=== PATIENT | female | born 1985 | race Caucasian/White ===

== ENCOUNTER 2019-03-29 13:30 | Emergency (ER) | payer OTHER, SELFPAY ==
--- NOTE | ~2019-03-29 | CT_ITS ---
EXAMINATION: CT abdomen pelvis w con DATE: 03/29/2019 14:52 INDICATION: Right lower quadrant abdominal pain. TECHNIQUE: Computed tomography (CT) of the abdomen and pelvis was performed with 100 mL Omnipaque 350 intravenous contrast. Automated exposure control and iterative reconstruction technique were employe d. The dose-length product was 177.60 mGy-cm. COMPARISON: CT abdomen and pelvis 01/18/2013 FINDINGS: The visualized portions of the lung bases demonstrate minimal atelectasis on the left. No p leural effusion. The heart size is normal. No pericardial effusion. The liver, gallbladder, spleen, p ancreas, adrenal glands, and left kidney are normal. Right kidney demonstrates a striated nephrogram, consistent with pyelonephritis. There are no dilated loops of bowel. The appendix is normal. There a re no pathologically enlarged lymph nodes. There is trace pelvic ascites. The bones are unremarkable. IMPRESSION: 1. Right-sided pyelonephritis. Reviewed, dictated and finalized at location A. [facility]
[2019-03-29 13:42] VITALS: BP 118/71; PULSE 113; RESP 17; TEMP 37.4; O2SAT 100
--- NOTE | 2019-03-29 14:06 | ED.ABDPAIN ---
HPI - Abdominal Pain General Chief Complaint: Abdominal Pain Stated Complaint: Weak Time Seen by Provider: 03/29/19 14:03 Source: patient and RN notes reviewed Mode of arrival: ambulatory Limitations: no limitations History of Present Illness HPI narrative: Pt is a 33 y/o female who presents to the ED with c/o right flank pain which began 4 years ago but has worsened since 2 days ago. Pt states her symptoms have been progressively since 2 days ago. Pt reports the pain radiates to her medial back and right-sided ABD. She states she started to see white spots when the pain began to worsen. She states she has seen her PCP for her symptoms without a formal diagnosis. She reports chills, a subjective fever, hot flashes, nausea, vomiting, hematuria, and vaginal discharge, but denies dysuria. She denies any STD history. MD elicited complaint: flank pain (right-sided) Pertinent past history: none Onset (ago): year(s) (4 years ago) Pain Consistency: constant Location: R flank Radiation: other (right-sided ABD and medial back) Migration to: no migration Associated symptoms: nausea, vomiting, fever (subjective), chills, hematuria and other (hot flashes; vaginal discharge) Related Data Allergies Allergy/AdvReac Type Severity Reaction Status Date / Time codeine Allergy Mild ITCHING Verified 09/01/17 10:14 cephalexin Allergy Unknown Verified 08/30/17 10:52 latex Allergy Unknown BLOTCHY Verified 09/01/17 10:14 Review of Systems Review of Systems: Narrative: CONSTITUTIONAL: Reports chills, a subjective fever, and hot flashes. GASTROINTESTINAL: Reports nausea and vomiting. GENITOURINARY: Reports hematuria and urinary frequency. MUSCULOSKELETAL: Reports right flank pain which radiates to the medial back and right-sided ABD. All systems reviewed & are unremarkable except as noted in HPI and below PMFSH Past Medical History Medical History (Updated 03/29/19 @ 15:29 by Kira Hardin MD) Anemia Bronchitis delivery delivered GERD (gastroesophageal reflux disease) Pneumonia Ulcer UTI (urinary tract infection) Surgical History Surgical History (Updated 03/29/19 @ 14:17 by Tiffany Rogers) H/O dilation and curettage H/O: hysterectomy Family History Family History (Updated 08/30/17 @ 10:56 by DOCTOR UNKNOWN) Other Family history of allergic disorder Hypertension Social History Social History Smoking status: Current every day smoker Alcohol intake: current Gender identity (if verbalized by the patient): Female Exam Narrative: Exam Narrative: GENERAL: Well-appearing and and in no acute distress. Thin in appearance. HEAD: Normocephalic, atraumatic. EYES: PERRLA and EOMI. ENT: Nares clear, no rhinorrhea or epistaxis. Mucous membranes moist. NECK: Supple. CHEST: Clear to auscultation. No respiratory distress. HEART: Tachycardic rate and regular rhythm. No murmur heard. Normal peripheral pulses. ABDOMEN: Diffusely tender throughout the ABD. EXTREMITIES: Normal range of motion. No edema. MUSCULOSKELETAL: Tenderness to right flank. SKIN: Warm, dry, no rash. NEURO: No focal deficits. Alert and oriented Course Vital Signs Vital signs: Vital Signs Temperature 37.4 C 03/29/19 13:42 Pulse Rate 113 H 03/29/19 13:42 Respiratory Rate 17 03/29/19 13:42 Blood Pressure 118/71 03/29/19 13:42 Pulse Oximetry 100 03/29/19 13:42 Temperature 37.4 C 03/29/19 13:42 Pulse Rate 113 H 03/29/19 13:42 Respiratory Rate 17 03/29/19 13:42 Blood Pressure 118/71 03/29/19 13:42 Pulse Oximetry 100 03/29/19 13:42 MDM - Abdominal Pain MDM Narrative Medical decision making narrative: Patient presenting for evaluation of right flank pain. At the time of initial assessment, patient is mildly tachycardic, afebrile, she has right lower quadrant tenderness, right flank tenderness, patient is also endorsing some urinary symptoms. Laboratory results are consistent with pyelonephritis. Patient has a leuko
[2019-03-29 14:16] LABS: Basophils Percent Auto 0.2 % (0.2-1.2); Eosinophils Percent Auto 0.1 % (0-4.4); Hematocrit 37.8 % (37.0-47.0); Hemoglobin 12.7 g/dL (12.0-15.0); Immature Granulocyte Absolute 0.12 K/mm3 (0.00-0.031); Immature Granulocyte Percent A 0.8 % (0-0.5); Immature Platelet Fraction Pct 7.2 % (0.9-11.2); Lymphocytes Percent Auto 3.2 % (18.3-44.2); Mean Corpuscular HGB Conc 33.6 g/dl (32-36); Mean Corpuscular Hemoglobin 31.8 pg (26-34); Mean Corpuscular Volume 94.5 fl (80-100); Mean Platelet Volume 11.7 fl (7.4-10.4); Monocytes Absolute Auto 0.4 K/mm3 (0.1-0.6); Monocytes Percent Auto 2.8 % (2.6-8.5); Neutrophils Absolute Auto 14.8 K/mm3 (1.3-6.7); Neutrophils Percent Auto 92.9 % (45.5-73.1); Platelet Count Result 121 k/mm3 (150-375); Red Cell Distribution Width 12.4 % (11.5-14.5); White Blood Count 15.9 K/mm3 (4.5-10.0)
[2019-03-29 14:19] LABS: Add Urine Microscopic? YES; Appearance Urine Cloudy (Clear); Bacteria Urine Trace /hpf; Bilirubin Urine Negative (Negative); Blood Urine 2+ (Negative); Color Urine Amber (Yellow); Glucose Urine UA Negative (Negative); Ketones Urine Negative (Negative); Leukocyte Esterase Ur 2+ LEU/UL (Negative); Mucus Urine Heavy /lpf; Nitrate Urine Positive (Negative); Protein Urine 3+ mg/dL (Negative); RBC Urine 21-50 /hpf (0-2); Specific Grav Ur 1.026 (1.001-1.035); Squamous Epithelial Cell Urine Many /hpf (Few); WBC Clumps Urine Present /HPF; WBC Urine >75 /hpf
[2019-03-29 14:27] LABS: Blood Urea Nitrogen 13 mg/dL (7-17); Calcium 8.8 mg/dL (8.4-10.2); Carbon Dioxide 22 mmol/L (22-30); Chloride 100 mmol/L (98-107); Estimated Glomerular Filt Rate > 60; Glucose 99 mg/dL (65-105); Sodium 133 mmol/L (137-145)
[2019-03-29] MEDS: SODIUM CHLORIDE 0.9% IV 1,000 ML 999 ML IV CONT (15:10)
[2019-03-29] MEDS: METOCLOPRAMIDE HCL INJ 10 MG/2 ML VIAL IV PUSH (15:10)
[2019-03-29] MEDS: POTASSIUM CHLORIDE 20 MEQ PACKET (FOR LIQUID) 40 MEQ PO (15:36)
[2019-03-29] MEDS: CIPROFLOXACIN 400 MG/D5W 200ML 200 ML 200 MG IVPB (15:36)
[2019-03-29 16:21] VITALS: BP 104/72; PULSE 108; O2SAT 99
== END 2019-03-29 16:23 | disposition home or self-care (01) ==
PROVIDERS: Emergency Provider Emergency Medicine; PCP Family Medicine
DX: N12 Tubulo-interstitial nephritis, not specified as acute or chronic (principal); F17.200 Nicotine dependence, unspecified, uncomplicated; Z86.2 Personal history of diseases of the blood and blood-forming organs and certain disorders involving the immune mechanism; K21.9 Gastro-esophageal reflux disease without esophagitis
CPT/HCPCS: 36415; 74177; 80048; 81001; 85025; 87077; 87086; 87088; 87186; 96365; 96367; 96375; 99284; A9270; J0131; J0744; J2765; J7030; Q9967

== ENCOUNTER 2019-10-29 10:08 | Emergency (ER) | payer OTHER, MEDICAID, SELFPAY ==
[2019-10-29 10:22] VITALS: BP 116/81; PULSE 85; RESP 20; TEMP 36.7; O2SAT 100
--- NOTE | 2019-10-29 10:22 | ED.GENADULT ---
HPI - General Adult General Chief complaint: Upper Respiratory Infection Stated complaint: valverde/dizzy/vomiting/sinus pressure/congestion Time Seen by Provider: 10/29/19 10:22 Source: patient and RN notes reviewed Mode of arrival: ambulatory Limitations: no limitations History of Present Illness HPI narrative: 33-year-old female presents with complaints of cough, upper respiratory infection, some facial congestion, facial pressure, and intermittent headache (not the worst of her life) for the past 2 days. Mucinex D, Tylenol (last this morning at 06:00), Excedrin (last 10/28/19 @ 21:00), and Ibuprofen (last 10/28/19 @ 14:00) without relief. No facial swelling. Dry cough and intermittent chest congestion. Nasal congestion and rhinorrhea. Sore throat. Pain is bilateral. Hurts to swallow. No high fevers, drooling, neck or throat swelling. No voice change. One episode of vomiting (last on 10/27/19) with nausea without blood or abdominal pain. Tolerating liquids well. Denies chills, dyspnea, difficulty swallowing, jaw pain, dental pain, foreign body sensation, and rash. No chest pain or shortness of breath. Denies vision change, confusion, or seizure activity. LMP hysterectomy. The patient reports she have not been diagnosed with COVID-19. The patient reports she is not waiting for the results of a COVID-19 lab test. The patient reports she do not have fever, chills, weakness, or fatigue. Denies chest pain. The patient reports she do not have any abdominal pain or diarrhea. Denies recent traveling. Denies concerns for COVID-19 or exposures been home with limited outdoor exposure except for essential household needs, work, and return home. At this time, patient is not suspected of having COVID-19. Some parts of this dictation were generated by voice recognition software and may contain typographical and/or grammatical inaccuracies. Related Data Home Medications Medication Instructions Recorded Confirmed alprazolam 1 mg PO QID PRN 04/08/19 10/29/19 fluoxetine [Prozac] 20 mg PO DAILY 04/08/19 10/29/19 Allergies Allergy/AdvReac Type Severity Reaction Status Date / Time codeine Allergy Mild ITCHING Verified 09/01/17 10:14 cephalexin Allergy Unknown Verified 08/30/17 10:52 latex Allergy Unknown BLOTCHY Verified 09/01/17 10:14 Review of Systems Review of Systems: Narrative: CONSTITUTIONAL: Denies fever, chills, sweats. EYES: Denies visual changes, redness, discharge. ENT: Complains of rhinorrhea, congestion, facial congestion and pressure, sore throat. Denies otalgia. CARDIOVASCULAR: Denies chest pain, palpitations, edema. RESPIRATORY: Denies dyspnea, wheezing. Complains of dry cough, chest congestion. GASTROINTESTINAL: Denies abdominal pain, diarrhea. Complains of nausea, vomiting, GENITOURINARY: Denies dysuria, hematuria, abnormal discharge SKIN: Denies rash or itching. MUSCULOSKELETAL: Denies acute back pain, joint pain, or myalgia. NEUROLOGIC: Denies numbness, or focal weakness. Complains of intermittent VALVERDE. PSYCHIATRIC: Denies anxiety or depression. All other systems reviewed & are unremarkable except as noted in HPI and below. [facility] Past Medical History Medical History (Updated 10/29/19 @ 10:46 by HIPOLITO Rubio) Anemia Anxiety Bronchitis delivery delivered Depression Episode of shaking GERD (gastroesophageal reflux disease) Pneumonia Tubal Ulcer Ulnar nerve entrapment Umbilical hernia UTI (urinary tract infection) Surgical History Surgical History (Updated 10/29/19 @ 10:46 by HIPOLITO Rubio) H/O dilation and curettage H/O: hysterectomy History of carpal tunnel release History of hernia surgery Umbilical hernia History of tubal ligation Family History Family History Other Family history of allergic disorder Hypertension Social History Social History (Updated 10/29/19 @ 10:47 by Brielle Adrian
[2019-10-29] MEDS: ONDANSETRON HCL ODT 4 MG TABLET PO (10:40)
[2019-10-29] MEDS: KETOROLAC (*BKC) 60 MG/2 ML VIAL IM (10:41)
== END 2019-10-29 11:10 | disposition home or self-care (01) ==
PROVIDERS: Emergency Provider Nurse Practitioner Family; PCP Family Medicine
DX: J01.00 Acute maxillary sinusitis, unspecified (principal); R51 Headache; Z20.828 Contact with and (suspected) exposure to other viral communicable diseases; F17.210 Nicotine dependence, cigarettes, uncomplicated; K21.9 Gastro-esophageal reflux disease without esophagitis; F41.9 Anxiety disorder, unspecified; F32.9 Major depressive disorder, single episode, unspecified
CPT/HCPCS: 96372; 99213; A9270; G0463; J1885

== ENCOUNTER → 2020-06-01 09:24 | Outpatient (CLI) | payer OTHER, SELFPAY ==
[2020-06-01 21:05] LABS: SARS-CoV-2 RNA PCR Positive
== END ==
PROVIDERS: PCP Family Medicine; Visit Provider Family Medicine
DX: U07.1 COVID-19 (principal)
CPT/HCPCS: C9803; U0003; U0005

== ENCOUNTER 2020-07-27 11:25 | Emergency (ER) | payer OTHER, SELFPAY ==
[2020-07-27 11:40] VITALS: BP 99/76; PULSE 85; RESP 17; TEMP 37.2
--- NOTE | 2020-07-27 12:25 | ED.URI ---
HPI - URI/Sore Throat General Chief Complaint: Upper Respiratory Infection Stated Complaint: upper respiratory infection Time Seen by Provider: 07/27/20 11:50 Source: patient and RN notes reviewed Mode of arrival: ambulatory Limitations: no limitations History of Present Illness HPI Narrative: Patient presents today complaining of 2-day history of cough, sore throat, headache, sweats and chills, body aches, shortness of breath, diarrhea, vomiting. States the diarrhea is watery. She has not been able to keep down food, but has been able to keep down fluids. She currently rates her body aches 10 and has been using Mucinex D, NyQuil, and ibuprofen with mild short-term relief. She was diagnosed with COVID-19 2 months ago. States to children in her home are currently sick with similar symptoms. She is requesting a work note today. Denies known fever. Patient smokes cigarettes, 3 to 4-day. Related Data Home Medications Medication Instructions Recorded Confirmed alprazolam 1 mg PO QID PRN 04/08/19 07/27/20 fluoxetine [Prozac] 20 mg PO DAILY 04/08/19 07/27/20 Allergies Allergy/AdvReac Type Severity Reaction Status Date / Time amoxicillin Allergy Mild Hives Verified 07/27/20 12:42 cephalexin Allergy Mild Hives Verified 07/27/20 12:41 codeine Allergy Mild ITCHING Verified 07/27/20 12:41 latex Allergy Mild BLOTCHY Verified 07/27/20 12:41 Review of Systems Review of Systems: Narrative: CONSTITUTIONAL: Denies fever. + Body aches, sweats and chills EYES: Denies visual changes, redness, or discharge. ENT: Denies rhinorrhea, congestion, or otalgia.+ Sore throat CARDIOVASCULAR: Denies chest pain, palpitations, or edema. RESPIRATORY: + Cough, shortness of breath GASTROINTESTINAL: Denies abdominal pain. + Nausea, vomiting, diarrhea GENITOURINARY: Denies dysuria or hematuria. SKIN: Denies rash, itching, or wounds. MUSCULOSKELETAL: Denies back pain, joint pain, or myalgia. NEUROLOGIC: Denies numbness, tingling, or weakness. + Headache, dizziness PSYCH: Denies depression or anxiety. [facility] Past Medical History Medical History Anemia Anxiety Bronchitis delivery delivered Depression Episode of shaking GERD (gastroesophageal reflux disease) Pneumonia Tubal Ulcer Ulnar nerve entrapment Umbilical hernia UTI (urinary tract infection) Surgical History Surgical History H/O dilation and curettage H/O: hysterectomy History of carpal tunnel release History of hernia surgery Umbilical hernia History of tubal ligation Family History Family History Other Family history of allergic disorder Hypertension Social History Social History Smoking packs per day: 0.2 Smoking cigarettes per day: 4.0 Years smoked: 5 Smoking pack-years: 1.00 Smoking status: Current every day smoker Tobacco type: cigarettes Second hand tobacco smoke exposure: No Alcohol intake: never Substance use: never Gender identity (if verbalized by the patient): Female Comments At time of signature, I have reviewed and agree with nursing past medical, surgical, social and family history unless otherwise noted. Please see nursing chart for further information. There is no relevant family history pertinent to the presenting complaint Exam Narrative: Exam Narrative: GENERAL: Mildly ill-appearing, well-nourished, and in no acute distress. HEAD: Normocephalic, atraumatic. EYES: EOMI. No redness or drainage. Conjunctivae normal. ENT: Mucous membranes pink and moist. Nares clear. No rhinorrhea. TMs normal bilaterally. Throat mildly erythematous without edema or exudate. Uvula midline. NECK: Normal AROM. Supple. No lymphadenopathy. CHEST: No respiratory distress. Clear to ausculta
== END 2020-07-27 12:35 | disposition home or self-care (01) ==
PROVIDERS: Emergency Provider Nurse Practitioner; PCP Family Medicine
DX: B34.9 Viral infection, unspecified (principal); J40 Bronchitis, not specified as acute or chronic; F17.210 Nicotine dependence, cigarettes, uncomplicated; F41.9 Anxiety disorder, unspecified; F32.9 Major depressive disorder, single episode, unspecified; K21.9 Gastro-esophageal reflux disease without esophagitis
CPT/HCPCS: 87081; 87804; 87880; 99213; G0463

== ENCOUNTER 2021-08-15 15:15 | Emergency (ER) | payer OTHER, SELFPAY ==
[2021-08-15 15:18] VITALS: BP 141/90; PULSE 87; RESP 12; TEMP 36.3; O2SAT 99
== END 2021-08-15 15:43 | disposition left against medical advice (07) ==
PROVIDERS: Emergency Provider Nurse Practitioner; PCP Family Medicine
DX: Z53.21 Procedure and treatment not carried out due to patient leaving prior to being seen by health care provider (principal)
CPT/HCPCS: 99199

== ENCOUNTER 2021-08-15 15:53 | Emergency (ER) | payer OTHER, SELFPAY ==
[2021-08-15 15:55] VITALS: BP 139/90; PULSE 90; RESP 18; TEMP 36.8; O2SAT 100
[2021-08-15 16:21] LABS: Basophils Percent Auto 0.3 % (0.2-1.2); Eosinophils Percent Auto 0.6 % (0-4.4); Hematocrit 31.7 % (37.0-47.0); Hemoglobin 10.1 g/dL (12.0-15.0); Immature Granulocyte Absolute 0.02 K/mm3 (0.00-0.031); Immature Granulocyte Percent A 0.3 % (0-0.5); Lymphocytes Absolute Auto 1.34 K/mm3 (0.9-3.2); Lymphocytes Percent Auto 19.4 % (18.3-44.2); Mean Corpuscular HGB Conc 31.9 g/dl (32-36); Mean Corpuscular Hemoglobin 31.7 pg (26-34); Mean Corpuscular Volume 99.4 fl (80-100); Mean Platelet Volume 11.3 fl (7.4-10.4); Monocytes Absolute Auto 0.3 K/mm3 (0.1-0.6); Monocytes Percent Auto 4.3 % (2.6-8.5); Neutrophils Absolute Auto 5.2 K/mm3 (1.3-6.7); Neutrophils Percent Auto 75.1 % (45.5-73.1); Platelet Count Result 142 k/mm3 (150-375); Red Blood Count 3.19 M/mm3 (4.2-5.4); Red Cell Distribution Width 14.2 % (11.5-14.5); White Blood Count 6.9 K/mm3 (4.5-10.0)
[2021-08-15 16:22] LABS: Appearance Urine Clear (Clear); Bilirubin Urine Negative (Negative); Blood Urine Trace-lysed (Negative); Color Urine Yellow (Yellow); Glucose Urine UA Negative (Negative); Ketones Urine Negative (Negative); Leukocyte Esterase Ur Negative LEU/UL (Negative); Nitrate Urine Negative (Negative); Protein Urine 1+ mg/dL (Negative); Urobilinogen Urine 0.2 mg/dL (<2.0); pH Urine 7.5 (5.0-9.0)
--- NOTE | 2021-08-15 16:23 | ED.EXTPRO ---
HPI - Extremity Problem General Chief complaint: Extremity Problem,Nontraumatic Stated complaint: bilateral leg edema Time Seen by Provider: 08/15/21 16:00 Related Data Home Medications Medication Instructions Recorded Confirmed alprazolam 1 mg tablet 1 mg PO QID PRN Anxiety 04/08/19 07/27/20 fluoxetine 20 mg capsule (Prozac) 20 mg PO DAILY 04/08/19 07/27/20 Allergies Allergy/AdvReac Type Severity Reaction Status Date / Time amoxicillin Allergy Mild Hives Verified 08/15/21 16:14 cephalexin Allergy Mild Hives Verified 08/15/21 16:14 codeine Allergy Mild ITCHING Verified 08/15/21 16:14 latex Allergy Mild BLOTCHY Verified 08/15/21 16:14 [facility] Past Medical History Medical History Anemia Anxiety Bronchitis delivery delivered Depression Episode of shaking GERD (gastroesophageal reflux disease) Pneumonia Tubal Ulcer Ulnar nerve entrapment Umbilical hernia UTI (urinary tract infection) Surgical History Surgical History H/O dilation and curettage H/O: hysterectomy History of carpal tunnel release History of hernia surgery Umbilical hernia History of tubal ligation Family History Family History Other Family history of allergic disorder Hypertension Social History Social History Smoking packs per day: 0.2 Smoking cigarettes per day: 4.0 Years smoked: 5 Smoking pack-years: 1.00 Smoking status: Current every day smoker Tobacco type: cigarettes Second hand tobacco smoke exposure: No Alcohol intake: never Substance use: never Gender identity (if verbalized by the patient): Female Sexual Orientation (if Verbalized by the Patient): Straight or Heterosexual Course Vital Signs Vital signs: Vital Signs Temperature 98.3 F 08/15/21 15:55 Pulse Rate 90 08/15/21 15:55 Respiratory Rate 18 08/15/21 15:55 Blood Pressure 139/90 08/15/21 15:55 Pulse Oximetry 100 08/15/21 15:55 Oxygen Delivery Room Air 08/15/21 15:55 Temperature 98.3 F 08/15/21 15:55 Pulse Rate 77 08/15/21 16:42 Respiratory Rate 17 08/15/21 16:42 Blood Pressure 138/96 H 08/15/21 16:42 Pulse Oximetry 99 08/15/21 16:42 Oxygen Delivery Room Air 08/15/21 15:55 MDM - Extremity (Nontraumatic) Lab Data Result diagrams: 08/15/21 16:15 08/15/21 16:15 Labs: Lab Results 08/15/21 08/15/21 08/15/21 Range/Units 16:10 16:15 16:15 WBC 6.9 (4.5-10.0) K/mm3 RBC 3.19 L (4.2-5.4) M/mm3 Hgb 10.1 L (12.0-15.0) g/dL Hct 31.7 L (37.0-47.0) % MCV 99.4 (80-100) fl MCH 31.7 (26-34) pg MCHC 31.9 L (32-36) g/dl RDW 14.2 (11.5-14.5) % Plt Count 142 L (150-375) k/mm3 MPV 11.3 H (7.4-10.4) fl Immature Gran % (Auto) 0.3 (0-0.5) % Neut % (Auto) 75.1 H (45.5-73.1) % Lymph % (Auto) 19.4 (18.3-44.2) % [place] % (Auto) 4.3 (2.6-8.5) % Eos % (Auto) 0.6 (0-4.4) % Baso % (Auto) 0.3 (0.2-1.2) % Lymph # (Auto) 1.34 (0.9-3.2) K/mm3 [place] # (Auto) 0.3 (0.1-0.6) K/mm3 Eos # (Auto) 0.0 (0-0.3) K/mm3 Baso # (Auto) 0.0 (0.0-0.1) K/mm3 Abs Immat Gran (auto) 0.02 (0.00-0.031) K/mm3 Absolute Neuts (auto) 5.2 (1.3-6.7) K/mm3 Absolute Nucleated RBC 0.0 (0.0-0.012) K/mm3 Nucleated RBC % 0.0 (0.0-0.2) % Sodium 141 (137-145) mmol/L Potassium 3.3 L (3.4-5.0) mmol/L Chloride 107 (98-107) mmol/L Carbon Dioxide 27 (22-30) mmol/L Anion Gap 7 L (8-16) mmol/L BUN 18 H (7-17) mg/dL Creatinine 0.70 (0.7-1.0) mg/dL Estim Creat Clear Calc 73 ml/min Estimated GFR > 60 (59 - ) Glucose 108 (65-110) mg/dL Calcium 8.2 L (8.4-10.2) mg/dL Total Bilirubin 0.3 (0.2-1.3) mg/dL AST 35 (14-36) U/L ALT 27 (6-35) U/L
[2021-08-15 16:31] LABS: Alanine Aminotransferase 27 U/L (6-35); Albumin Level 4.2 g/dL (3.5-5.1); Alkaline Phosphatase 61 U/L (38-126); Anion Gap 7 mmol/L (8-16); Aspartate Amino Transferase 35 U/L (14-36); Bilirubin,Total 0.3 mg/dL (0.2-1.3); Blood Urea Nitrogen 18 mg/dL (7-17); Calcium 8.2 mg/dL (8.4-10.2); Carbon Dioxide 27 mmol/L (22-30); Chloride 107 mmol/L (98-107); Estimated CRCL calculation 73 ml/min; Estimated Glomerular Filt Rate > 60; Glucose 108 mg/dL (65-110); Potassium 3.3 mmol/L (3.4-5.0); Sodium 141 mmol/L (137-145)
[2021-08-15 16:39] LABS: Mucus Urine Rare /lpf; Squamous Epithelial Cell Urine Few /hpf (Few); WBC Urine 0-3 /hpf
[2021-08-15 16:42] VITALS: BP 138/96; PULSE 77; RESP 17; O2SAT 99
[2021-08-15 16:50] LABS: Add Urine Microscopic? YES
[2021-08-15] MEDS: FUROSEMIDE 20 MG TABLET PO (17:15)
[2021-08-15] MEDS: POTASSIUM CHLORIDE 20 MEQ PACKET (FOR LIQUID) 40 MEQ PO (17:18)
== END 2021-08-15 17:20 | disposition home or self-care (01) ==
PROVIDERS: Emergency Provider Emergency Medicine; PCP Family Medicine
DX: R60.0 Localized edema (principal); F32.9 Major depressive disorder, single episode, unspecified; F41.9 Anxiety disorder, unspecified; F17.210 Nicotine dependence, cigarettes, uncomplicated
CPT/HCPCS: 36415; 80053; 81001; 85025; 99283; A9270

== ENCOUNTER 2023-02-16 02:00 | Day surgery (SDC) | payer MEDICAID, SELFPAY ==
[2023-01-30 15:03] VITALS: BMI 21.9
--- NOTE | 2023-02-14 12:35 | SUR.PREOP ---
Patient called regarding upcoming procedure. Reviewed preop instructions, appointment times, and procedure prep.
[2023-02-16 08:47] VITALS: BP 117/77; PULSE 84; RESP 18; TEMP 36.4; O2SAT 100; BMI 22.8
[2023-02-16] MEDS: LACTATED RINGERS 1,000 ML 150 ML IV CONT (09:07)
--- NOTE | 2023-02-16 09:43 | PM.HPGS ---
History of Present Illness History of Present Illness Consent: Risks, benefits, and alternatives have been discussed and questions answered. Patient agrees to proceed with procedure. Chief complaint: abdom.pain,Abdominal distension (gaseous), Narrative: Amaya Ross is a 37 year old female [facility] Past Medical History Medical History (Updated 01/11/23 @ 14:43 by Brittany Martinez APN-C) Abdominal pain Allergy to alpha-gal Anemia Anxiety Bloating BMI 21.0-21.9, adult Bronchitis delivery delivered Depression Early satiety Encounter for other specified surgical aftercare Episode of shaking GERD (gastroesophageal reflux disease) Incisional hernia, without obstruction or gangrene Loose stools Pneumonia Tobacco abuse Tubal Ulcer Ulnar nerve entrapment Umbilical hernia UTI (urinary tract infection) Surgical History Surgical History H/O dilation and curettage H/O: hysterectomy History of carpal tunnel release History of hernia surgery Umbilical hernia History of tubal ligation Family History Family History (Updated 01/11/23 @ 12:58 by JOHN Romero) Father No problems noted. Mother Diverticulitis Obesity Sibling No problems noted. Other Family history of allergic disorder Hypertension Social History Social History (Updated 01/11/23 @ 13:00 by JOHN Romero) Smoking packs per day: 0.2 Smoking cigarettes per day: 4.0 Years smoked: 13 Smoking pack-years: 2.60 Smoking status: Current every day smoker Tobacco type: cigarettes Second hand tobacco smoke exposure: No Alcohol intake: never Substance use: current Substance use type: marijuana Lack of Transportation: No Lack of Food: Never True Current Housing: I Have Housing Concerned About Future Housing: No Difficulty Paying Gas/Electric Bills: No Difficulty Paying for Meds: No Currently Unemployed: No Education: Associate Degree Difficulty w/ Childcare or Family Care: No Living arrangements: with family Occupation/Education: occupation 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 Gender identity (if verbalized by the patient): Female Sexual Orientation (if Verbalized by the Patient): Straight or Heterosexual Spiritual care concerns: No Meds Home Medications and Allergies Home Medications Medication Instructions Recorded Confirmed Type alprazolam 1 mg tablet 1 mg PO QID PRN Anxiety 04/08/19 01/30/23 History fluoxetine 20 mg capsule (Prozac) 20 mg PO DAILY 04/08/19 01/30/23 History albuterol sulfate 90 mcg/actuation 2 puff inhalation Q4-6H PRN 07/27/20 01/30/23 Rx aerosol inhaler (ProAir HFA) Shortness Of Breath Or Wheezing #18 grams dexlansoprazole 30 mg 30 mg PO DAILY 1 month #30 caps 01/11/23 01/30/23 Rx capsule,biphase delayed release (Dexilant) dicyclomine 20 mg tablet 20 mg PO QID #90 tabs 01/11/23 01/30/23 Rx Allergies Allergy/AdvReac Type Severity Reaction Status Date / Time amoxicillin Allergy Mild Hives Verified 01/11/23 12:54 codeine Allergy Mild ITCHING Verified 01/11/23 12:54 latex Allergy Mild BLOTCHY Verified 01/11/23 12:54 morphine Allergy Jittery Verified 01/30/23 15:01 cephalexin AdvReac Intermediate Hives Verified 01/11/23 12:54 Vital Signs Vital Signs - 24 hr 02/16/23 08:47 Temperature 97.6 F Pulse Rate 84 Respiratory Rate 18 Blood Pressure 117/77 Pulse Oximetry 100 Oxygen Delivery Room Air Assessment and Plan Assessment and plan (1) Bloating: Code(s): R14.0 - Abdominal distension (gaseous) Status: Acute (2) Abdominal pain: Code(s): R10.9 - Unspecified abdominal pain Status: Acute Assessment and Plan: Patient with multiple vague abdominal complaints epigastric discomfort, bloating. Loose stools. Colonoscopy an EGD request will be performed to exclude organic dis
--- NOTE | 2023-02-16 10:35 | SUR.OPER ---
egd ended at 1029 and colonoscopy started at 1034
--- NOTE | 2023-02-16 10:38 | WPDANESEPPF ---
Anes - Initial Pre Proc Eval Procedure: Operation Date: 02/16/23 10:15 Proposed Procedures p Esophagogastroduodenoscopy & Colonoscopy - Edgar Potts MD Date/Time: 02/16/23 10:38 Surgeon: Edgar Potts MD Pre Op Diagnosis: abdom.pain,Abdominal distension (gaseous), Patient Data Age: 37 Gender: F Height: 1.55 m Weight: 54.8 kg Last Vital Signs Temp 97.6 F 02/16/23 08:47 Pulse 84 02/16/23 08:47 Resp 18 02/16/23 08:47 BP 117/77 02/16/23 08:47 Pulse Ox 100 02/16/23 08:47 O2 Del Method Room Air 02/16/23 08:47 Allergies Allergy/AdvReac Type Severity Reaction Status Date / Time amoxicillin Allergy Mild Hives Verified 01/11/23 12:54 codeine Allergy Mild ITCHING Verified 01/11/23 12:54 latex Allergy Mild BLOTCHY Verified 01/11/23 12:54 morphine Allergy Jittery Verified 01/30/23 15:01 cephalexin AdvReac Intermediate Hives Verified 01/11/23 12:54 Home Medications Medication Instructions Recorded Confirmed Type alprazolam 1 mg tablet 1 mg PO QID PRN Anxiety 04/08/19 01/30/23 History fluoxetine 20 mg capsule (Prozac) 20 mg PO DAILY 04/08/19 01/30/23 History albuterol sulfate 90 mcg/actuation 2 puff inhalation Q4-6H PRN 07/27/20 01/30/23 Rx aerosol inhaler (ProAir HFA) Shortness Of Breath Or Wheezing #18 grams dexlansoprazole 30 mg 30 mg PO DAILY 1 month #30 caps 01/11/23 01/30/23 Rx capsule,biphase delayed release (Dexilant) dicyclomine 20 mg tablet 20 mg PO QID #90 tabs 01/11/23 01/30/23 Rx Patient hx anesthesia problems: none Family hx anesthesia problems: none Results Review: All pre-operative results and documents have been reviewed as part of the pre-operative evaluation. [facility] Past Medical History Medical History (Updated 01/11/23 @ 14:43 by Brittany Martinez, RESERVOIR ENGINEER-C) Abdominal pain Allergy to alpha-gal Anemia Anxiety Bloating BMI 21.0-21.9, adult Bronchitis delivery delivered Depression Early satiety Encounter for other specified surgical aftercare Episode of shaking GERD (gastroesophageal reflux disease) Incisional hernia, without obstruction or gangrene Loose stools Pneumonia Tobacco abuse Tubal Ulcer Ulnar nerve entrapment Umbilical hernia UTI (urinary tract infection) Surgical History Surgical History H/O dilation and curettage H/O: hysterectomy History of carpal tunnel release History of hernia surgery Umbilical hernia History of tubal ligation Family History Family History (Updated 01/11/23 @ 12:58 by Valarie Jack Dada) Father No problems noted. Mother Diverticulitis Obesity Sibling No problems noted. Other Family history of allergic disorder Hypertension Social History Social History (Updated 01/11/23 @ 13:00 by Valarie Jack Dada) Smoking packs per day: 0.2 Smoking cigarettes per day: 4.0 Years smoked: 13 Smoking pack-years: 2.60 Smoking status: Current every day smoker Tobacco type: cigarettes Second hand tobacco smoke exposure: No Alcohol intake: never Substance use: current Substance use type: marijuana Lack of Transportation: No Lack of Food: Never True Current Housing: I Have Housing Concerned About Future Housing: No Difficulty Paying Gas/Electric Bills: No Difficulty Paying for Meds: No Currently Unemployed: No Education: Associate Degree Difficulty w/ Childcare or Family Care: No Living arrangements: with family Occupation/Education: occupation 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 Gender identity (if verbalized by the patient): Female Sexual Orientation (if Verbalized by the Patient): Straight or Heterosexual Spiritual care concerns: No Anes - Eval Final PreProcedure Day of Procedure 02/16/23 10:38 Patient weight: normal Heart: regular rate and rhythm Lungs: clear to auscultation Airway: Mallampati scale clas
[2023-02-16 10:45] VITALS: BP 114/70; PULSE 63; RESP 20; O2SAT 100
[2023-02-16 10:55] VITALS: BP 112/80; PULSE 70; RESP 14; O2SAT 100
[2023-02-16 11:05] VITALS: BP 121/86; PULSE 68; RESP 18; O2SAT 100
== END 2023-02-16 11:15 | disposition home or self-care (01) ==
PROVIDERS: PCP Family Medicine; Visit Provider Internal Medicine Gastroenterology
PROC: 0DJ08ZZ Inspection of Upper Intestinal Tract, Via Natural or Artificial Opening Endoscopic (ICD-10-PCS; CPT 43235; principal; 2023-02-16 10:15)
DX: K29.80 Duodenitis without bleeding (principal); K64.8 Other hemorrhoids; K21.9 Gastro-esophageal reflux disease without esophagitis; F32.A Depression, unspecified; F41.9 Anxiety disorder, unspecified; F17.210 Nicotine dependence, cigarettes, uncomplicated; Z79.51 Long term (current) use of inhaled steroids
CPT/HCPCS: 45378; 43239; 87081; 88305; J2704; J7120

== ENCOUNTER 2023-06-27 20:40 | Emergency (ER) | payer OTHER, BC, SELFPAY ==
[2023-06-27 20:43] VITALS: BP 132/84; PULSE 87; RESP 20; TEMP 36.6; O2SAT 100
[2023-06-27 21:03] LABS: Basophils Percent Auto 0.3 % (0.2-1.2); Eosinophils Absolute Auto 0.1 K/mm3 (0-0.3); Eosinophils Percent Auto 1.8 % (0-4.4); Hemoglobin 12.3 g/dL (12.0-15.0); Immature Granulocyte Absolute 0.01 K/mm3 (0.00-0.031); Immature Granulocyte Percent A 0.2 % (0-0.5); Immature Platelet Fraction Pct 9.5 % (0.9-11.2); Lymphocytes Absolute Auto 1.25 K/mm3 (0.9-3.2); Lymphocytes Percent Auto 20.6 % (18.3-44.2); Mean Corpuscular HGB Conc 33.2 g/dl (32-36); Mean Corpuscular Volume 96.4 fl (80-100); Mean Platelet Volume 11.6 fl (7.4-10.4); Monocytes Absolute Auto 0.3 K/mm3 (0.1-0.6); Monocytes Percent Auto 5.6 % (2.6-8.5); Neutrophils Absolute Auto 4.3 K/mm3 (1.3-6.7); Neutrophils Percent Auto 71.5 % (45.5-73.1); Platelet Count Result 142 k/mm3 (150-375); Red Blood Count 3.84 M/mm3 (4.2-5.4); Red Cell Distribution Width 12.3 % (11.5-14.5); White Blood Count 6.1 K/mm3 (4.5-10.0)
[2023-06-27 21:11] LABS: Alanine Aminotransferase 17 U/L (6-35); Albumin Level 4.8 g/dL (3.5-5.1); Alkaline Phosphatase 75 U/L (38-126); Anion Gap 9 mmol/L (4-12); Aspartate Amino Transferase 28 U/L (14-36); Bilirubin,Total 0.3 mg/dL (0.2-1.3); Blood Urea Nitrogen 16 mg/dL (7-17); Calcium 9.1 mg/dL (8.4-10.2); Carbon Dioxide 25 mmol/L (22-30); Chloride 106 mmol/L (98-107); Estimated CRCL calculation 97 ml/min; Estimated Glomerular Filt Rate > 60; Glucose 93 mg/dL (65-110); Potassium 3.5 mmol/L (3.4-5.0); Prothrombin Time 13.7 Seconds (11.1-14.7); Sodium 140 mmol/L (137-145)
[2023-06-27 21:12] LABS: Partial Thromboplastin Time 32.2 Seconds (22.3-36.8)
[2023-06-27 22:10] LABS: Influenza A QL RT-PCR Negative (Negative); Influenza B QL RT-PCR Negative (Negative); RSV RNA, RT-PCR Negative (Negative); SARS-CoV-2 RNA PCR Negative (Negative)
[2023-06-27 23:21] LABS: Appearance Urine Cloudy (Clear); Bacteria Urine Rare /hpf; Bilirubin Urine Negative (Negative); Blood Urine Trace (Negative); Color Urine Yellow (Yellow); Glucose Urine UA Negative (Negative); Ketones Urine Trace mg/dL (Negative); Leukocyte Esterase Ur Negative LEU/UL (Negative); Nitrate Urine Negative (Negative); Protein Urine 3+ mg/dL (Negative); RBC Urine 0-2 /hpf (0-2); Squamous Epithelial Cell Urine Few /hpf (Few); Urobilinogen Urine 0.2 mg/dL (<2.0); WBC Urine 0-5 /hpf (0-3); pH Urine 5.5 (5.0-9.0)
[2023-06-27 23:22] LABS: Specific Grav Ur 1.031 (1.001-1.035)
[2023-06-27 23:23] LABS: Add Urine Microscopic? YES
--- NOTE | 2023-06-27 23:29 | ED.GENADULT ---
HPI - General Adult General Chief complaint: GI Bleed Stated complaint: Seeing spots, puked up blood, watery BMs Time Seen by Provider: 06/27/23 22:04 History of Present Illness HPI narrative: Patient 37-year-old female who presents emergency department with chief complaint of ear pressure headache nasal drainage nasal pressure and nasal drainage with blood in the nasal drainage. Patient states she has also had some loose bowel movements and reports that she has had some discomfort with urination. Related Data Home Medications Medication Instructions Recorded Confirmed alprazolam 1 mg tablet 1 mg PO QID PRN Anxiety 04/08/19 01/30/23 fluoxetine 20 mg capsule (Prozac) 20 mg PO DAILY 04/08/19 01/30/23 Allergies Allergy/AdvReac Type Severity Reaction Status Date / Time amoxicillin Allergy Mild Hives Verified 01/11/23 12:54 codeine Allergy Mild ITCHING Verified 01/11/23 12:54 latex Allergy Mild BLOTCHY Verified 01/11/23 12:54 morphine Allergy Jittery Verified 01/30/23 15:01 cephalexin AdvReac Intermediate Hives Verified 01/11/23 12:54 Review of Systems Review of Systems: A 10 system review of systems was completed on the patient and is negative except for what is stated in the HPI. Nursing and ancillary documentation was reviewed. [facility] Past Medical History Medical History Abdominal pain Allergy to alpha-gal Anemia Anxiety Bloating BMI 21.0-21.9, adult Bronchitis delivery delivered Depression Early satiety Encounter for other specified surgical aftercare Episode of shaking GERD (gastroesophageal reflux disease) Incisional hernia, without obstruction or gangrene Loose stools Pneumonia Tobacco abuse Tubal Ulcer Ulnar nerve entrapment Umbilical hernia UTI (urinary tract infection) Surgical History Surgical History H/O dilation and curettage H/O: hysterectomy History of carpal tunnel release History of hernia surgery Umbilical hernia History of tubal ligation Family History Family History Father No problems noted. Mother Diverticulitis Obesity Sibling No problems noted. Other Family history of allergic disorder Hypertension Social History Social History Smoking packs per day: 0.2 Smoking cigarettes per day: 4.0 Years smoked: 13 Smoking pack-years: 2.60 Smoking status: Current every day smoker Tobacco type: cigarettes Second hand tobacco smoke exposure: No Alcohol intake: never Substance use: current Substance use type: marijuana Lack of Transportation: No Lack of Food: Never True Current Housing: I Have Housing Concerned About Future Housing: No Difficulty Paying Gas/Electric Bills: No Difficulty Paying for Meds: No Currently Unemployed: No Education: Associate Degree Difficulty w/ Childcare or Family Care: No Living arrangements: with family Occupation/Education: occupation 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 Gender identity (if verbalized by the patient): Female Sexual Orientation (if Verbalized by the Patient): Straight or Heterosexual Spiritual care concerns: No Exam Narrative: GENERAL: Well-appearing, well-nourished, and in no acute distress. HEAD: Normocephalic, atraumatic. EYES: PERRLA and EOMI. ENT: Nares clear, no rhinorrhea or epistaxis. Mucous membranes moist. There is erythema of the right tympanic membrane NECK: Supple. CHEST: Clear to auscultation. No respiratory distress. HEART: Regular rate and rhythm. No murmur heard. Normal peripheral pulses. ABDOMEN: Soft, nontender, nondistended, normal active bowel sounds. EXTREMITIES: Normal range of motion. No edema. SKIN: Warm, dry, no rash. NE
[2023-06-28 00:29] VITALS: BP 107/92; PULSE 78; RESP 15; O2SAT 98
== END 2023-06-28 00:30 | disposition home or self-care (01) ==
PROVIDERS: Emergency Provider Emergency Medicine; PCP Family Medicine
DX: H66.91 Otitis media, unspecified, right ear (principal); J32.9 Chronic sinusitis, unspecified; F17.210 Nicotine dependence, cigarettes, uncomplicated; D64.9 Anemia, unspecified; F41.9 Anxiety disorder, unspecified; K21.9 Gastro-esophageal reflux disease without esophagitis; Z87.440 Personal history of urinary (tract) infections
CPT/HCPCS: 36415; 80053; 81001; 85025; 85055; 85610; 85730; 86850; 86900; 86901; 87637; 99283

== ENCOUNTER 2023-12-19 08:21 | Emergency (ER) | payer OTHER, SELFPAY ==
--- NOTE | 2023-12-19 08:23 | ED.URI ---
HPI - URI/Sore Throat General Chief Complaint: Upper Respiratory Infection Stated Complaint: VOMITING/DIARRHEA/SORE THROAT/CAN'T TASTE/TIRED Time Seen by Provider: 12/19/23 08:23 Source: patient Mode of arrival: ambulatory Limitations: no limitations History of Present Illness HPI Narrative: Amaya is a 38-year-old female patient presenting to the clinic today with complaints of nausea, vomiting, diarrhea, cough, sore throat, no taste, and fatigue x3 days. She reports no fever or chills. 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 Denies any chest pain or shortness of breath. Denies any blood in her stool. Has abdominal cramping prior to vomiting or having diarrhea. History of hysterectomy. MD elicited complaint: cough, sore throat, nasal congestion and other (Fatigue, no taste, nausea, vomiting, diarrhea) Related Data Home Medications Medication Instructions Recorded Confirmed alprazolam 1 mg tablet 1 mg PO QID PRN Anxiety 04/08/19 08/29/23 fluoxetine 20 mg capsule (Prozac) 20 mg PO DAILY 04/08/19 08/29/23 omeprazole 20 mg capsule,delayed mg PO 08/29/23 08/29/23 release Allergies Allergy/AdvReac Type Severity Reaction Status Date / Time amoxicillin Allergy Mild Hives Verified 08/29/23 10:51 codeine Allergy Mild ITCHING Verified 08/29/23 10:51 latex Allergy Mild BLOTCHY Verified 08/29/23 10:51 morphine Allergy Jittery Verified 08/29/23 10:51 cephalexin AdvReac Intermediate Hives Verified 08/29/23 10:51 Review of Systems Review of Systems: Pertinent positives per HPI. Patient denies any fever, chills, rash, headache, visual changes, dizziness, shortness of breath, chest pain, palpitations, constipation, or any urinary issues. [facility] Past Medical History Medical History Abdominal pain Allergy to alpha-gal Anemia Anxiety Bloating BMI 21.0-21.9, adult Bronchitis delivery delivered Depression Early satiety Encounter for other specified surgical aftercare Episode of shaking GERD (gastroesophageal reflux disease) Incisional hernia, without obstruction or gangrene Loose stools Pneumonia Tobacco abuse Tubal Ulcer Ulnar nerve entrapment Umbilical hernia UTI (urinary tract infection) Surgical History Surgical History H/O dilation and curettage H/O: hysterectomy History of carpal tunnel release History of hernia surgery Umbilical hernia History of tubal ligation Family History Family History Father No problems noted. Mother Diverticulitis Obesity Sibling No problems noted. Other Family history of allergic disorder Hypertension Social History Social History Smoking packs per day: 0.2 Smoking cigarettes per day: 4.0 Years smoked: 13 Smoking pack-years: 2.60 Smoking status: Current every day smoker Tobacco type: cigarettes Second hand tobacco smoke exposure: No Alcohol intake: never Substance use: current Substance use type: marijuana Lack of Transportation: No Lack of Food: Never True Current Housing: I Have Housing Concerned About Future Housing: No Difficulty Paying Gas/Electric Bills: No Difficulty Paying for Meds: No Currently Unemployed: No Education: Associate Degree Difficulty w/ Childcare or Family Care: No Living arrangements: with family Occupation/Education: occupation 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 Gender identity (if verbalized by the patient): Female Sexual Orientation (if Verbalized by the Patient): Straight or Heterosexual Spiritual care concerns: No Comments At the time of my signature, I reviewed and agree with the nursing past medical, surgical, social, and family history. There is no relevant family history pertinent to th
[2023-12-19 08:38] VITALS: BP 110/86; PULSE 115; RESP 16; TEMP 36.6; O2SAT 99
[2023-12-19 08:59] LABS: EDCOVIDSCREEN Negative (Negative); EDINFLUASCREEN Negative (Negative); EDINFLUBSCREEN Negative (Negative); EDSTREPNEGPOS1 Negative (Negative)
== END 2023-12-19 09:03 | disposition home or self-care (01) ==
PROVIDERS: Emergency Provider Nurse Practitioner Family
DX: K52.9 Noninfective gastroenteritis and colitis, unspecified (principal); B34.9 Viral infection, unspecified; J06.9 Acute upper respiratory infection, unspecified; J02.9 Acute pharyngitis, unspecified; Z20.822 Contact with and (suspected) exposure to COVID-19; F17.210 Nicotine dependence, cigarettes, uncomplicated; F12.90 Cannabis use, unspecified, uncomplicated; F41.9 Anxiety disorder, unspecified; F32.A Depression, unspecified; K21.9 Gastro-esophageal reflux disease without esophagitis
CPT/HCPCS: 87081; 87426; 87804; 87880; 99213; G0463